=== PATIENT | female | born 1970 | race Caucasian/White ===

== ENCOUNTER 2017-01-14 11:48 | Emergency (ER) | payer MEDICARE ==
[~2017-01-14] VITALS: Ht 152.4 cm; Wt 108.6 kg
[~2017-01-14 11:48] MED LIST: LABE100T3 PO; METH250T PO
[2017-01-14] MEDS ORDERED: MECLIZINE CHEWABLE 25 MG TAB ONE (12:56)
[2017-01-14] MEDS ORDERED: SODIUM CHLORIDE FLUSH 10ML SYR IVF ONE (13:00)
[2017-01-14] MEDS ORDERED: SODIUM CHLORIDE 0.9% 1,000ML IVBOLUS ONE (13:00)
[2017-01-14] MEDS ORDERED: MECLIZINE CHEWABLE 25 MG TAB PO ONE (13:00)
[2017-01-14 13:13] LABS: HEMATOCRIT 47.8 % (34.6-47.8); HEMOGLOBIN 16.4 g/dL (11.7-16.4)
[2017-01-14 13:25] LABS: BLOOD UREA NITROGEN 9 mg/dL (7-18)
[2017-01-14 15:14] VITALS: BP 127/82
== END 2017-01-14 15:17 | disposition home or self-care (01) ==
LOC: ED 12:55
DX: R42 Dizziness and giddiness (principal); R11.0 Nausea
CPT/HCPCS: 36415; 70450; 80048; 82040; 85025; 93005; 96360; 99285; J7030